=== PATIENT | female | born 1950 | race Two or more races ===

== ENCOUNTER 2017-08-01 10:32 | Emergency (ER) | payer MEDICARE, MEDICAID ==
[~2017-08-01] VITALS: Ht 152.4 cm; Wt 59.0 kg
[2017-08-01] MEDS ORDERED: KETOROLAC TROMETH 30 MG/ML 1ML VIAL IV ONE (11:00)
[2017-08-01 12:30] VITALS: BP 145/68
== END 2017-08-01 12:38 | disposition home or self-care (01) ==
LOC: ER 10:32
DX: S22.088A Other fracture of T11-T12 vertebra, initial encounter for closed fracture (principal); M19.90 Unspecified osteoarthritis, unspecified site; E11.9 Type 2 diabetes mellitus without complications; I10 Essential (primary) hypertension; I25.2 Old myocardial infarction; Z90.710 Acquired absence of both cervix and uterus; W18.39XA Other fall on same level, initial encounter; Y93.89 Activity, other specified; Y92.89 Other specified places as the place of occurrence of the external cause; Y99.8 Other external cause status
CPT/HCPCS: 72131; 93005; 96374; 99284; J1885

== ENCOUNTER 2020-01-18 10:46 | Inpatient (IN) | payer MEDICARE, MEDICAID ==
[~2020-01-18] VITALS: Ht 152.4 cm; Wt 59.3 kg
[2020-01-18] MEDS ORDERED: MORPHINE SULF INJ 2 MG/ML SYRINGE 1ML IV ONE (11:00)
[2020-01-18] MEDS ORDERED: ONDANSETRON HCL 4 MG/2 ML VIAL IV ONE (11:00)
[2020-01-18 11:21] LABS: Basophils # (auto) 0.1 10 ^3/uL (0-0.2); Eosinophils # (auto) 0.1 10 ^3/uL (0-0.8); Eosinophils % (auto) 1.7 % (0.0-7.0); Hematocrit 38.5 % (36.0-46.0); Hemoglobin 12.7 g/dL (12.2-16.2); Lymphocytes # (auto) 1.8 10 ^3/uL (0.4-5.4); Lymphocytes % (auto) 33.4 % (10.0-50.0); Mean Corpuscular Hemoglobin 30.8 pg (28.0-32.0); Mean Corpuscular Volume 93.3 fL (80.0-100.0); Monocytes # (auto) 0.6 10 ^3/uL (0-1.3); Monocytes % (auto) 10.7 % (0.0-12.0); Neutrophils # (auto) 2.9 10 ^3/uL (1.6-8.6); Neutrophils % (auto) 53.2 % (37.0-80.0); Nucleated Red Blood Cells % 0.1 %; Platelet Count (auto) 336 10^3/uL (140-450); Red Blood Cells 4.12 10^6/uL (4.0-5.20); Red Cell Distribution Width 14.6 % (11.8-14.3); White Blood Cell 5.4 10^3/uL (4.4-10.8)
[2020-01-18 11:40] LABS: Alanine Aminotransferase 35 U/L (13-56); Albumin 3.7 g/dL (3.4-5.0); Anion Gap 7 (5-15); Blood Urea Nitrogen 20 mg/dL (7-18); Calcium 9.2 mg/dL (8.5-10.1); Carbon Dioxide 25 mmol/L (21-32); Chloride 108 mmol/L (98-107); Glucose 173 mg/dL (74-106); Potassium 3.9 mmol/L (3.5-5.1); Sodium 140 mmol/L (136-145)
[2020-01-18 11:45] LABS: Alkaline Phosphatase 55 U/L (45-117); Aspartate Aminotransferase 31 U/L (15-37); BUN/Creatinine Ratio 21.7; Bilirubin, Total 0.4 mg/dL (0.2-1.0); GFR African American 78 mL/min; GFR Non-African American 64 mL/min; Total Protein 6.9 g/dL (6.4-8.2)
[2020-01-18] MEDS ORDERED: NITROGLYCERIN 0.4 MG SL TAB SL PRN (13:15)
[2020-01-18] MEDS ORDERED: MORPHINE SULF INJ 2 MG/ML SYRINGE 1ML IV PRN ×2 (13:15)
[2020-01-18] MEDS ORDERED: ONDANSETRON HCL 4 MG/2 ML VIAL IV PRN (13:15)
[2020-01-18] MEDS ORDERED: HYDROcodone-ACET 5/325MG TAB PO PRN (13:15)
[2020-01-18] MEDS ORDERED: DEXTROSE (50%) 50ML SYRG IV PRN (13:45)
[2020-01-18] MEDS: ACETAMINOPHEN 500 MG TAB PO PRN (14:55)
[2020-01-18] MEDS: SODIUM CHLORIDE 0.9% 1,000 ML IV SCH (15:25)
--- NOTE | 2020-01-18 16:00 | NUR ---
Telemetry admit from ER [facility] admitted to Telemetry unit after SBAR received. Patient oriented to primary RN, unit, room, bed, and unit policies regarding patient care. Patient now on continuous telemetry monitoring, tele box # 45 and telemetry reading on arrival to unit is SR 78. Patient weighed by bedscale and encouraged to call if she need something. All questions and concerns addressed, patient verbalized understanding.
[2020-01-18 17:00] VITALS: BP 153/49
[2020-01-18] MEDS: InsuLIN REG 1unit/0.01ml Soln (100units/ml) SC SCH (17:00)
[2020-01-18] MEDS ORDERED: PANT40TA2 PO (17:58)
[2020-01-18] MEDS ORDERED: ONDA-144 PO (17:58)
[2020-01-18] MEDS ORDERED: FOLI1TAB6 PO (17:58)
[2020-01-18] MEDS ORDERED: LEVO25TA6 PO (17:58)
[2020-01-18] MEDS ORDERED: MECL25TA18 PO (17:58)
[2020-01-18] MEDS ORDERED: FENO160T8 PO (17:58)
[2020-01-18] MEDS ORDERED: LOSA25TA38 PO (17:58)
[2020-01-18] MEDS ORDERED: CELE100C82 PO (17:58)
[2020-01-18] MEDS ORDERED: AMLO5TAB15 PO (17:58)
[2020-01-18] MEDS ORDERED: SUCR1TAB PO (17:58)
[2020-01-18] MEDS ORDERED: PRED2.5T4 PO (17:58)
--- NOTE | 2020-01-18 18:00 | NUR ---
Accu Chek Patient's blood sugar 60. [place] juice given and will recheck.
[2020-01-18 18:09] VITALS: BP 150/59
[2020-01-18] MEDS: ACCU-CHEK COMFORT CURVE STRIP VI SCH ×2 (18:14→22:03)
[2020-01-18] MEDS ORDERED: CELE1CAP8 PO (18:19)
[2020-01-18] MEDS ORDERED: [UNRECOGNIZED DRUG - CODE] TOP (18:24)
[2020-01-18] MEDS ORDERED: INSLANTI SC (18:24)
[2020-01-18] MEDS ORDERED: ATOR20TA50 PO (18:24)
[2020-01-18] MEDS ORDERED: BEXA75CA PO (18:24)
[2020-01-18] MEDS ORDERED: TRI05TP TOP (18:27)
--- NOTE | 2020-01-18 18:30 | NUR ---
Accu Chek Rechecked blood sugar is 70 at this time. Dinner tray arrived to unit late and given to patient.
--- NOTE | 2020-01-18 19:20 | NUR ---
Opening Shift Note Received report from Brandie ORONA. Assumed care of patient, awake and alert. No S/S of distress/SOB or pain. Instructed on POC and to call for assist PRN, will continue to monitor for changes Q1hr and PRN.
[2020-01-18 20:00] VITALS: BP 158/70
--- NOTE | 2020-01-18 20:46 | NUR ---
Urine sample was taken and sent to laboratory.
[2020-01-18 22:00] VITALS: BP 158/70
[2020-01-18] MEDS ORDERED: InsuLIN REG 1unit/0.01ml Soln (100units/ml) SC SCH (22:00)
[2020-01-18 22:20] LABS: Urine Bacteria NONE SEEN /hpf (None Seen); Urine Blood Negative /uL (Negative); Urine Specific Gravity 1.006 (1.001-1.035); Urine WBC 2 /hpf (0 - 5)
[2020-01-19] MEDS: SODIUM CHLORIDE 0.9% 1,000 ML IV SCH (03:50)
[2020-01-19 05:47] VITALS: BP 156/64
[2020-01-19 06:16] LABS: BUN/Creatinine Ratio 23.9; Calcium 9.1 mg/dL (8.5-10.1); Potassium 3.9 mmol/L (3.5-5.1)
[2020-01-19] MEDS: InsuLIN REG 1unit/0.01ml Soln (100units/ml) SC SCH ×4 (06:42→22:26)
[2020-01-19] MEDS: ACCU-CHEK COMFORT CURVE STRIP VI SCH ×4 (06:42→22:24)
[2020-01-19 09:00] VITALS: BP 155/79
[2020-01-19] MEDS: FAMOTIDINE 20 MG TAB PO SCH (09:53)
--- NOTE | 2020-01-19 11:57 | NUR ---
high blood pressure Dr. Rojas made aware pt's blood pressure is 181/52mmHg, he said he will see the pt.
--- NOTE | 2020-01-19 12:01 | NUR ---
insulin not given blood sugar is 157, pt's blood sugar drops fast with inulin, will notify .
--- NOTE | 2020-01-19 12:29 | NUR ---
pt seen by Dr. Rojas, received order to DC IVF, and continue all home medication except for lantus, made aware pt's blood sugar drop, he said to put pt on mild sliding scale, made aware insulin was held for blood sugar 157.
[2020-01-19] MEDS ORDERED: MECLIZINE HCL 25 MG TAB PO PRN (12:45)
[2020-01-19 13:00] VITALS: BP 181/58
[2020-01-19] MEDS ORDERED: LOSARTAN POTASSIUM 25 MG TAB PO ONE (13:15)
[2020-01-19] MEDS ORDERED: amLODIPine BESYLATE 5 MG TAB PO ONE (13:15)
[2020-01-19] MEDS ORDERED: DEXTROSE (50%) 50ML SYRG IV PRN (13:30)
[2020-01-19 17:00] VITALS: BP 150/78
[2020-01-19] MEDS: SUCRALFATE 1 GM TAB PO SCH ×2 (18:23→22:23)
--- NOTE | 2020-01-19 19:35 | NUR ---
Opening Shift Note Assumed care of patient, awake and alert A/O x 4. No S/S of distress/SOB pain or dizziness. Bed in lowered and locked call light and bedside table in reach. Instructed on POC and to call for assist PRN, will continue to monitor for changes Q1hr and PRN.
[2020-01-19 21:56] VITALS: BP 156/71
[2020-01-19] MEDS: ATORVASTATIN 20 MG TAB PO SCH (22:24)
[2020-01-19] MEDS: TRIAMCINOLONE ACET 0.1% TOPICAL CREAM 15GM TOP SCH (22:30)
--- NOTE | 2020-01-19 22:43 | NUR ---
Patient refused regular insulin for blood glucose level of 139 mg/dl. patient states that that is a normal blood glucose reading for her and does not want insulin. Patient educated on purpose of medication and side effects but still refused medication.
--- NOTE | 2020-01-19 22:55 | NUR ---
Doctor Sanchez at bedside
[2020-01-20 00:16] LABS: Triglycerides 272 mg/dL (< 150)
[2020-01-20 00:20] LABS: Cholesterol 207 mg/dL (< 200); HDL Cholesterol 20 mg/dL (40-59); LDL Cholesterol 140 mg/dL (< 100)
[2020-01-20] MEDS: ACETAMINOPHEN 500 MG TAB PO PRN (02:29)
[2020-01-20 05:02] VITALS: BP 155/83
[2020-01-20] MEDS: SUCRALFATE 1 GM TAB PO SCH ×4 (06:20→21:53)
[2020-01-20] MEDS: ACCU-CHEK COMFORT CURVE STRIP VI SCH ×4 (06:21→21:55)
[2020-01-20] MEDS: LEVOTHYROXINE SODIUM 25 MCG TAB PO SCH ×3 (06:21→06:37)
[2020-01-20] MEDS: InsuLIN REG 1unit/0.01ml Soln (100units/ml) SC SCH ×4 (06:22→21:54)
--- NOTE | 2020-01-20 08:30 | NUR ---
Dr. Sanchez at bedside, patient is clear from neurology standpoint.
[2020-01-20 09:00] VITALS: BP 153/68
[2020-01-20] MEDS: CELECOXIB 100 MG CAP PO SCH (09:24)
[2020-01-20] MEDS: FAMOTIDINE 20 MG TAB PO SCH (09:24)
[2020-01-20] MEDS: FOLIC ACID 1 MG TAB PO SCH (09:24)
[2020-01-20] MEDS: amLODIPine BESYLATE 5 MG TAB PO SCH (09:25)
[2020-01-20] MEDS: LOSARTAN POTASSIUM 25 MG TAB PO SCH (09:25)
[2020-01-20] MEDS: predniSONE 5 MG TAB PO SCH (09:25)
[2020-01-20] MEDS: ASPirin-EC 81 mg tab PO SCH (09:26)
[2020-01-20] MEDS: TRIAMCINOLONE ACET 0.1% TOPICAL CREAM 15GM TOP SCH ×2 (09:26→21:55)
[2020-01-20 12:56] VITALS: BP 155/65
[2020-01-20 16:40] VITALS: BP 136/55
--- NOTE | 2020-01-20 19:20 | NUR ---
Opening Shift Note Assumed care of patient, awake and alert A/O x 4. No S/S of distress/SOB pain or dizziness. Bed locked in lowest position and call light within reach. Instructed on POC and to call for assist PRN, will continue to monitor for changes Q1hr and PRN.
--- NOTE | 2020-01-20 21:30 | NUR ---
Patient Refused Meds Patient refused her Lipitor and Carafate as ordered. Patient said she does not want to take Carafate and that Lipitor makes her nauseous. Medications withheld at this time.
[2020-01-20] MEDS: ATORVASTATIN 20 MG TAB PO SCH (21:54)
[2020-01-20 22:08] VITALS: BP 153/59
[2020-01-21 05:00] VITALS: BP 142/67
[2020-01-21] MEDS: SUCRALFATE 1 GM TAB PO SCH ×2 (06:00→11:50)
[2020-01-21] MEDS: ACCU-CHEK COMFORT CURVE STRIP VI SCH ×2 (06:32→11:50)
[2020-01-21] MEDS: LEVOTHYROXINE SODIUM 25 MCG TAB PO SCH (06:32)
[2020-01-21] MEDS: InsuLIN REG 1unit/0.01ml Soln (100units/ml) SC SCH ×2 (06:35→11:51)
[2020-01-21 09:00] VITALS: BP 139/69
[2020-01-21] MEDS: predniSONE 5 MG TAB PO SCH (09:22)
[2020-01-21] MEDS: LOSARTAN POTASSIUM 25 MG TAB PO SCH (09:23)
[2020-01-21] MEDS: ASPirin-EC 81 mg tab PO SCH (09:23)
[2020-01-21] MEDS: CELECOXIB 100 MG CAP PO SCH (09:23)
[2020-01-21] MEDS: FAMOTIDINE 20 MG TAB PO SCH (09:23)
[2020-01-21] MEDS: TRIAMCINOLONE ACET 0.1% TOPICAL CREAM 15GM TOP SCH (09:24)
[2020-01-21] MEDS: FOLIC ACID 1 MG TAB PO SCH (09:24)
[2020-01-21] MEDS: amLODIPine BESYLATE 5 MG TAB PO SCH (09:24)
--- NOTE | 2020-01-21 12:28 | NUR ---
assessment Patient is a 69 year old female. Per patients franco Benitez prior to admission patient lived home with family and needed assistance. Per Emmanuel patient will return home on discharge and he will transport patient home. Patient has a cane for home use. Patients PCP is Dr Figueroa in [place]. Patient has an advanced directive and Emmanuel is her POA. I informed Emmanuel of patients ss consult. Per Emmanuel he request [facility]. MD order has been sent to [facility]. Per Hiro at [facility] service will start on tomorrow 01/22/2020. Emmanuel verbalized understanding and agreed to discharge plan home. Addendum: 01/21/20 at 1233 by Mamta Pedro Amended: Links added.
[2020-01-21 13:24] VITALS: BP 139/69
--- NOTE | 2020-01-21 15:36 | NUR ---
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
--- NOTE | 2020-01-21 16:10 | NUR ---
Discharge instructions given as ordered. Encourage to follow up with PMD (FOLLOW UP WITH YOUR PRIMARY CARE DOCTOR WITH IN 1 WEEK [address] SCH[address]ULE WITH [address]. GARCIA, SAMEL [address][phone] , [address] [place] [address] FOLLOW UP WITH THE NEUROLOGIST DR. HAMPTON WITHIN 2 WEEKS. PLEASE CALL [phone] TO SCHEDULE YOUR FOLLOW UP APPOINTMENT. FOLLOW UP WITH THE DIRECTOR OF ROOMS DR. ACOSTA, PLEASE CALL [phone] TO SCHEDULE YOUR APPOINTMENT. ) as instructed. All questions and concerns addressed. Patient verbalized understanding. Medication reconciliation form completed and copy given to patient. Home medications held in Pharmacy returned to patient. IV removed with catheter intact, pressure dressing applied. Telemetry unit returned to ICU. Patient taken to vehicle via wheelchair with all personal belongings, accompanied by staff and family member. No distress noted at time of departure.
== END 2020-01-21 16:10 | disposition home health service (06) | DRG 69 ==
LOC: ER 10:46 → TELE 10:47 → TELE-CENTR 16:46
PROVIDERS: ADMIT Nurse Practitioner Acute Care; ATTEND Family Medicine
DX: G45.9 Transient cerebral ischemic attack, unspecified (principal); E86.0 Dehydration; M06.9 Rheumatoid arthritis, unspecified; I10 Essential (primary) hypertension; M81.0 Age-related osteoporosis without current pathological fracture; Z20.828 Contact with and (suspected) exposure to other viral communicable diseases; E78.5 Hyperlipidemia, unspecified; F17.200 Nicotine dependence, unspecified, uncomplicated; I25.10 Atherosclerotic heart disease of native coronary artery without angina pectoris; E11.65 Type 2 diabetes mellitus with hyperglycemia; E11.21 Type 2 diabetes mellitus with diabetic nephropathy; C73 Malignant neoplasm of thyroid gland; Z90.710 Acquired absence of both cervix and uterus; Z85.850 Personal history of malignant neoplasm of thyroid; Z92.21 Personal history of antineoplastic chemotherapy; Z79.82 Long term (current) use of aspirin; Z79.899 Other long term (current) drug therapy; Z80.1 Family history of malignant neoplasm of trachea, bronchus and lung; Z80.0 Family history of malignant neoplasm of digestive organs; I25.2 Old myocardial infarction; Z79.84 Long term (current) use of oral hypoglycemic drugs
CPT/HCPCS: 36415; 70450; 70551; 71045; 80048; 80053; 80061; 81001; 82962; 83036; 84443; 84484; 85025; 87426; 93005; 93306; 93886; G0378; J1815; J2405

== ENCOUNTER 2020-03-03 15:59 | Inpatient (IN) | payer MEDICARE, MEDICAID ==
[~2020-03-03] VITALS: Ht 152.4 cm; Wt 57.0 kg
[2020-03-03] MEDS: DESONIDE 0.05% TOP SCH (05:03)
[~2020-03-03 15:59] MED LIST: AMLO5TAB15 PO; ATOR20TA50 PO; BEXA75CA PO; CELE1CAP8 PO; FENO160T8 PO; FOLI1TAB6 PO; INSLANTI SC; LEVO25TA6 PO; LOSA25TA38 PO; MECL25TA18 PO; ONDA-144 PO; PANT40TA2 PO; PRED2.5T4 PO; SUCR1TAB PO; TRI05TP TOP; [UNRECOGNIZED DRUG - CODE] TOP
[2020-03-03 17:03] LABS: Urine WBC None Seen /hpf (0 - 5)
[2020-03-03 17:05] LABS: Basophils # (auto) 0.1 10 ^3/uL (0-0.2); Basophils % (auto) 0.9 % (0.0-2.0); Eosinophils # (auto) 0 10 ^3/uL (0-0.8); Eosinophils % (auto) 0.8 % (0.0-7.0); Hemoglobin 11.8 g/dL (12.2-16.2); Lymphocytes # (auto) 2.3 10 ^3/uL (0.4-5.4); Lymphocytes % (auto) 37.2 % (10.0-50.0); Mean Corpuscular Hemoglobin 30.9 pg (28.0-32.0); Mean Corpuscular Hgb Conc. 32.7 g/dL (32.0-36.0); Mean Corpuscular Volume 94.5 fL (80.0-100.0); Monocytes # (auto) 0.5 10 ^3/uL (0-1.3); Monocytes % (auto) 8.1 % (0.0-12.0); Neutrophils # (auto) 3.2 10 ^3/uL (1.6-8.6); Nucleated Red Blood Cells % 0.2 %; Platelet Count (auto) 338 10^3/uL (140-450); Red Blood Cells 3.81 10^6/uL (4.0-5.20); Red Cell Distribution Width 14.2 % (11.8-14.3); White Blood Cell 6.1 10^3/uL (4.4-10.8)
[2020-03-03 17:15] LABS: INR 0.97 (0.9-1.15); Partial Thromboplastin Time 24.2 sec (23.0-31.2)
[2020-03-03 17:24] LABS: Albumin 3.6 g/dL (3.4-5.0); Amylase 49 U/L (25-115); Anion Gap 5 (5-15); BUN/Creatinine Ratio 22.1; Blood Urea Nitrogen 23 mg/dL (7-18); Calcium 8.8 mg/dL (8.5-10.1); Carbon Dioxide 29 mmol/L (21-32); Chloride 101 mmol/L (98-107); GFR African American 67 mL/min; GFR Non-African American 56 mL/min; Glucose 224 mg/dL (74-106); Lipase 144 U/L (73-393); Magnesium 1.9 mg/dL (1.6-2.6); Sodium 135 mmol/L (136-145)
[2020-03-03 17:28] LABS: Urine Bacteria NONE SEEN /hpf (None Seen); Urine Blood Negative /uL (Negative); Urine Specific Gravity 1.015 (1.001-1.035)
[2020-03-03 17:30] LABS: Alanine Aminotransferase 29 U/L (13-56); Alkaline Phosphatase 84 U/L (45-117); Aspartate Aminotransferase 28 U/L (15-37); Bilirubin, Total 0.3 mg/dL (0.2-1.0); Total Protein 6.9 g/dL (6.4-8.2)
[2020-03-03] MEDS ORDERED: cefTRIAXone 1GM/50ML D5W 50 ML IV ONE (18:30)
[2020-03-03] MEDS ORDERED: AZITHROMYCIN 500MG/ 250ML 250 ML IV ONE (18:30)
[2020-03-03] MEDS ORDERED: INFLUENZA QUAD 2020-2021 0.5 ML SYRG IM ONE (19:00)
[2020-03-03] MEDS ORDERED: NITROGLYCERIN 0.4 MG SL TAB SL PRN (19:00)
[2020-03-03] MEDS ORDERED: PNEUMOCOCCAL VACC POLYS 25 MCG/0.5 ML VIAL IM ONE (19:00)
[2020-03-03] MEDS ORDERED: SODIUM CHLORIDE 0.9% 1,000 ML IV SCH (19:00)
[2020-03-03] MEDS ORDERED: ACETAMINOPHEN 325 MG TAB PO PRN (19:00)
[2020-03-03] MEDS ORDERED: DOCUSATE SOD 100 MG CAP PO PRN (19:00)
[2020-03-03] MEDS ORDERED: ALUM & MAG HYDROX-SIMETH LIQ(MAALOX) 30 ML PO PRN (19:00)
[2020-03-03] MEDS ORDERED: MEROPENEM 1GM IVPB 100 ML IV ONE (19:00)
[2020-03-03] MEDS ORDERED: HYDROcodone-ACET 5/325MG TAB PO PRN (19:00)
[2020-03-03] MEDS ORDERED: LORazepam 0.5 MG TAB PO PRN (19:00)
[2020-03-03] MEDS ORDERED: MORPHINE SULF INJ 2 MG/ML SYRINGE 1ML IV PRN ×2 (19:00)
[2020-03-03] MEDS ORDERED: DEXTROSE (50%) 50ML SYRG IV PRN (19:00)
[2020-03-03] MEDS ORDERED: ONDANSETRON HCL 4 MG/2 ML VIAL IV PRN (19:00)
[2020-03-03] MEDS ORDERED: LOSA-69 PO (19:00)
[2020-03-03] MEDS ORDERED: [UNRECOGNIZED DRUG - CODE] SC (19:24)
[2020-03-03] MEDS ORDERED: [UNRECOGNIZED DRUG - CODE] EX (19:25)
[2020-03-03] MEDS ORDERED: KETO2CRE4 TOP (19:25)
[2020-03-03] MEDS ORDERED: hydrALAZINE HCL 20 MG/ML VL IV PRN (19:30)
[2020-03-03 21:11] LABS: Cholesterol 208 mg/dL (< 200); HDL Cholesterol 24 mg/dL (40-59); LDL Cholesterol 144 mg/dL (< 100); Triglycerides 292 mg/dL (< 150)
[2020-03-03] MEDS ORDERED: InsuLIN REG 1unit/0.01ml Soln (100units/ml) SC SCH (22:00)
[2020-03-03] MEDS ORDERED: ATORVASTATIN 20 MG TAB PO SCH (22:00)
[2020-03-03] MEDS ORDERED: [UNRECOGNIZED DRUG - OTHER] TOP SCH (22:00)
[2020-03-04 04:31] VITALS: BP 147/69
[2020-03-04 05:09] VITALS: BP 142/69
--- NOTE | 2020-03-04 05:17 | NUR ---
Telemetry admit from [facility] admitted to Telemetry unit after SBAR received. Patient oriented to Torrey Parker, primary RN, unit, room, bed, and unit policies regarding patient care and visiting hours. Patient now on continuous telemetry monitoring, tele box # [53] and telemetry reading on arrival to unit is [SA 80]. Patient weighed by bedscale and encouraged to call if they need something. All questions and concerns addressed, patient verbalized understanding. Note: []
--- NOTE | 2020-03-04 05:20 | NUR ---
Unable to reconcile home medications at this time Unable to reconcile home medications at this time. Patient reports she takes medications at home but does not remember the name of her medications and she did not bring a list. Per patient, she will call son later today and have him bring in a list of her home medications. Primary RN Caryn alexandra.
[2020-03-04] MEDS: SUCRALFATE 1 GM TAB PO SCH ×2 (06:40→11:30)
[2020-03-04] MEDS: ACCU-CHEK COMFORT CURVE STRIP VI SCH ×2 (06:40→11:30)
[2020-03-04] MEDS: InsuLIN REG 1unit/0.01ml Soln (100units/ml) SC SCH ×2 (06:41→11:30)
--- NOTE | 2020-03-04 06:45 | NUR ---
CALLED PHARMACY, RESCHEDULED MERREM SINCE MEDICATION NOT GIVEN IN ER. CONTINUE TO MONITOR.
[2020-03-04] MEDS ORDERED: BEXAROTENE PO SCH (07:00)
[2020-03-04] MEDS ORDERED: MEROPENEM 1GM IVPB 100 ML IV SCH ×2 (07:00→10:00)
[2020-03-04] MEDS ORDERED: LEVOTHYROXINE SODIUM 25 MCG TAB PO SCH (07:00)
--- NOTE | 2020-03-04 07:26 | NUR ---
[facility]SA SWAB COLLECTED AND SENT. CONTINUE TO MONITOR
--- NOTE | 2020-03-04 07:35 | NUR ---
Opening Shift Note Assumed care of patient, awake and alert . Bed is locked and in lowest position , bed rails up x2 , call light is with in reach. No S/S of distress/SOB or pain. Instructed on POC and to call for assistance PRN, will continue to monitor for changes Q1hr and PRN.
[2020-03-04 09:00] VITALS: BP 119/57
[2020-03-04] MEDS ORDERED: amLODIPine BESYLATE 5 MG TAB PO SCH (10:00)
[2020-03-04] MEDS ORDERED: PANTOPRAZOLE 40 MG TAB PO SCH (10:00)
[2020-03-04] MEDS ORDERED: predniSONE 5 MG TAB PO SCH (10:00)
[2020-03-04] MEDS ORDERED: GEMFIBROZIL 600 MG TAB PO SCH (10:00)
[2020-03-04] MEDS: DESONIDE 0.05% TOP SCH (10:00)
[2020-03-04] MEDS ORDERED: ENOXAPARIN SOD 40 MG/0.4 ML SYRINGE SC SCH (10:00)
[2020-03-04] MEDS ORDERED: FOLIC ACID 1 MG TAB PO SCH (10:00)
[2020-03-04 13:00] VITALS: BP 141/69
--- NOTE | 2020-03-04 15:15 | NUR ---
Discharge instructions given as ordered. Encourage to follow up with PMD as instructed. All questions and concerns addressed. Patient verbalized understanding. Medication reconciliation form completed and copy given to patient. vaccines given. IV removed with catheter intact, pressure dressing applied. Telemetry unit returned to ICU. Patient taken to vehicle via wheelchair with all personal belongings, accompanied by staff . No distress noted at time of departure.
== END 2020-03-04 15:15 | disposition home or self-care (01) | DRG 690 ==
LOC: ER 15:59 → TELE 16:00 → TELE-WESTW 03-04 04:28
PROVIDERS: ADMIT Hospitalist; ATTEND Family Medicine
PROC: 3E0234Z Introduction of Serum, Toxoid and Vaccine into Muscle, Percutaneous Approach (ICD-10-PCS; principal; 2020-03-03)
DX: N39.0 Urinary tract infection, site not specified (principal); E86.0 Dehydration; E78.5 Hyperlipidemia, unspecified; E11.65 Type 2 diabetes mellitus with hyperglycemia; D64.9 Anemia, unspecified; G89.29 Other chronic pain; E11.22 Type 2 diabetes mellitus with diabetic chronic kidney disease; E11.40 Type 2 diabetes mellitus with diabetic neuropathy, unspecified; M54.9 Dorsalgia, unspecified; I12.9 Hypertensive chronic kidney disease with stage 1 through stage 4 chronic kidney disease, or unspecified chronic kidney disease; K21.9 Gastro-esophageal reflux disease without esophagitis; K29.70 Gastritis, unspecified, without bleeding; Z23 Encounter for immunization; M06.9 Rheumatoid arthritis, unspecified; M81.0 Age-related osteoporosis without current pathological fracture; N18.9 Chronic kidney disease, unspecified; Z79.84 Long term (current) use of oral hypoglycemic drugs; Z80.9 Family history of malignant neoplasm, unspecified; Z85.850 Personal history of malignant neoplasm of thyroid; Z87.440 Personal history of urinary (tract) infections; Z90.710 Acquired absence of both cervix and uterus
CPT/HCPCS: 36415; 71046; 74176; 80053; 80061; 81001; 82150; 82962; 83036; 83605; 83690; 83735; 84484; 85025; 85610; 85730; 87040; 87081; 87086; 96365; 96367; 96372; G0378; J0696; J2185

== ENCOUNTER 2020-12-21 10:51 | Emergency (ER) | payer MEDICARE, MEDICAID ==
[~2020-12-21] VITALS: Ht 152.4 cm; Wt 59.0 kg
[~2020-12-21 10:51] MED LIST changes: +AMLO-489 PO; -AMLO5TAB15 PO; +KETO2CRE4 TOP; +LOSA-69 PO; -LOSA25TA38 PO; -MECL25TA18 PO; -ONDA-144 PO; -TRI05TP TOP; +[UNRECOGNIZED DRUG - CODE] EX; +[UNRECOGNIZED DRUG - CODE] SC
[2020-12-21] MEDS ORDERED: cloNIDine HCL 0.1 MG TAB PO ONE (11:00)
[2020-12-21] MEDS ORDERED: ACETAMINOPHEN 325 MG TAB PO ONE (11:30)
[2020-12-21 12:57] VITALS: BP 133/53
== END 2020-12-21 13:52 | disposition home or self-care (01) ==
LOC: ER 10:51
DX: S46.911A Strain of unspecified muscle, fascia and tendon at shoulder and upper arm level, right arm, initial encounter (principal); M19.011 Primary osteoarthritis, right shoulder; E11.9 Type 2 diabetes mellitus without complications; I10 Essential (primary) hypertension; E78.5 Hyperlipidemia, unspecified; I25.2 Old myocardial infarction; M19.90 Unspecified osteoarthritis, unspecified site; Z90.710 Acquired absence of both cervix and uterus; Z90.89 Acquired absence of other organs; Z79.4 Long term (current) use of insulin; Z79.899 Other long term (current) drug therapy
CPT/HCPCS: 73030

== ENCOUNTER 2021-01-23 02:57 | Inpatient (IN) | payer MEDICARE, MEDICAID ==
[~2021-01-23] VITALS: Ht 152.4 cm; Wt 57.1 kg
[2021-01-23] MEDS ORDERED: ONDANSETRON HCL 4 MG/2 ML VIAL IV ONE (03:45)
[2021-01-23 04:33] LABS: Basophils # (auto) 0 10 ^3/uL (0-0.2); Basophils % (auto) 0.1 % (0.0-2.0); Eosinophils # (auto) 0.1 10 ^3/uL (0-0.8); Eosinophils % (auto) 0.6 % (0.0-7.0); Hematocrit 43.5 % (36.0-46.0); Hemoglobin 14.3 g/dL (12.2-16.2); Lymphocytes # (auto) 0.5 10 ^3/uL (0.4-5.4); Lymphocytes % (auto) 5.1 % (10.0-50.0); Mean Corpuscular Hemoglobin 29.8 pg (28.0-32.0); Mean Corpuscular Hgb Conc. 32.9 g/dL (32.0-36.0); Mean Corpuscular Volume 90.5 fL (80.0-100.0); Monocytes # (auto) 0.4 10 ^3/uL (0-1.3); Monocytes % (auto) 3.8 % (0.0-12.0); Neutrophils # (auto) 8.8 10 ^3/uL (1.6-8.6); Neutrophils % (auto) 90.4 % (37.0-80.0); Red Cell Distribution Width 14.7 % (11.8-14.3); White Blood Cell 9.7 10^3/uL (4.4-10.8)
[2021-01-23 04:45] LABS: INR 0.99 (0.9-1.15)
[2021-01-23 04:52] LABS: Albumin 3.7 g/dL (3.4-5.0); Anion Gap 6 (5-15); Blood Urea Nitrogen 28 mg/dL (7-18); Calcium 9.2 mg/dL (8.5-10.1); Carbon Dioxide 25 mmol/L (21-32); Chloride 109 mmol/L (98-107); Lipase 1008 U/L (73-393); Potassium 4.2 mmol/L (3.5-5.1); Sodium 140 mmol/L (136-145)
[2021-01-23 05:00] LABS: Alanine Aminotransferase 24 U/L (13-56); Alkaline Phosphatase 63 U/L (45-117); Aspartate Aminotransferase 19 U/L (15-37); Bilirubin, Total 0.4 mg/dL (0.2-1.0); GFR African American 106 mL/min; GFR Non-African American 88 mL/min; Glucose 167 mg/dL (74-106)
[2021-01-23] MEDS ORDERED: SODIUM CHLORIDE 0.9% 1,000 ML IV ONE (06:00)
[2021-01-23] MEDS ORDERED: MORPHINE SULFATE 4 MG/ML SYR/VIAL IV PRN (07:15)
[2021-01-23] MEDS ORDERED: ONDANSETRON HCL 4 MG/2 ML VIAL IV PRN (07:15)
[2021-01-23] MEDS ORDERED: hydrALAZINE HCL 20 MG/ML VL IV PRN (07:15)
[2021-01-23 08:28] VITALS: BP 129/65
[2021-01-23 09:00] VITALS: BP 129/65
[2021-01-23] MEDS: PANTOPRAZOLE 40 MG/10 ML VIAL INJ IV SCH (10:23)
[2021-01-23] MEDS: SODIUM CHLORIDE 0.9% 1,000 ML IV SCH ×2 (10:23→21:13)
[2021-01-23] MEDS: metroNIDAZOLE 500MG/100ML 100 ML IV SCH ×2 (10:23→17:13)
[2021-01-23 13:00] VITALS: BP 139/60
[2021-01-23] MEDS: ATORVASTATIN 20 MG TAB PO SCH (21:39)
[2021-01-23 22:00] VITALS: BP 157/58
[2021-01-24] MEDS: metroNIDAZOLE 500MG/100ML 100 ML IV SCH ×3 (00:22→16:07)
[2021-01-24 04:51] VITALS: BP 158/50
[2021-01-24] MEDS: LEVOTHYROXINE SODIUM 25 MCG TAB PO SCH ×2 (07:00→08:03)
[2021-01-24 07:16] LABS: Basophils # (auto) 0 10 ^3/uL (0-0.2); Basophils % (auto) 0.3 % (0.0-2.0); Eosinophils # (auto) 0.1 10 ^3/uL (0-0.8); Eosinophils % (auto) 2.7 % (0.0-7.0); Hematocrit 38.1 % (36.0-46.0); Hemoglobin 12.7 g/dL (12.2-16.2); Lymphocytes # (auto) 1.3 10 ^3/uL (0.4-5.4); Lymphocytes % (auto) 29.6 % (10.0-50.0); Mean Corpuscular Hemoglobin 30.4 pg (28.0-32.0); Mean Corpuscular Hgb Conc. 33.3 g/dL (32.0-36.0); Mean Corpuscular Volume 91.1 fL (80.0-100.0); Monocytes # (auto) 0.4 10 ^3/uL (0-1.3); Monocytes % (auto) 10.4 % (0.0-12.0); Neutrophils # (auto) 2.4 10 ^3/uL (1.6-8.6); Nucleated Red Blood Cells % 0.1 %; Red Blood Cells 4.19 10^6/uL (4.0-5.20); Red Cell Distribution Width 14.7 % (11.8-14.3); White Blood Cell 4.2 10^3/uL (4.4-10.8)
[2021-01-24 09:00] VITALS: BP 169/84
[2021-01-24] MEDS: SODIUM CHLORIDE 0.9% 1,000 ML IV SCH (09:55)
[2021-01-24] MEDS: levoFLOXacin 500MG 100 ML IV SCH (10:00)
[2021-01-24] MEDS: PANTOPRAZOLE 40 MG/10 ML VIAL INJ IV SCH ×2 (10:00→11:08)
[2021-01-24 10:02] LABS: Urine Bacteria FEW /hpf (None Seen); Urine Blood Negative /uL (Negative); Urine Hyaline Cast FEW /lpf (0 - 2); Urine Specific Gravity 1.014 (1.001-1.035); Urine WBC 137 /hpf (0 - 5)
[2021-01-24] MEDS: LOSARTAN POTASSIUM 50 MG TAB PO SCH (11:08)
[2021-01-24] MEDS: amLODIPine BESYLATE 5 MG TAB PO SCH (11:09)
[2021-01-24 12:15] LABS: Potassium 3.2 mmol/L (3.5-5.1)
[2021-01-24 12:17] LABS: Albumin 2.7 g/dL (3.4-5.0); BUN/Creatinine Ratio 24.6; Bilirubin, Total 0.3 mg/dL (0.2-1.0); Calcium 7.9 mg/dL (8.5-10.1); Total Protein 5.7 g/dL (6.4-8.2)
[2021-01-24 13:00] VITALS: BP 157/68
[2021-01-24 17:00] VITALS: BP 157/91
[2021-01-24 21:36] VITALS: BP 146/60
[2021-01-24] MEDS: ATORVASTATIN 20 MG TAB PO SCH (21:37)
[2021-01-25] MEDS: metroNIDAZOLE 500MG/100ML 100 ML IV SCH ×2 (01:14→08:46)
[2021-01-25] MEDS: SODIUM CHLORIDE 0.9% 1,000 ML IV SCH (01:14)
[2021-01-25 04:52] VITALS: BP 151/74
[2021-01-25] MEDS: LEVOTHYROXINE SODIUM 25 MCG TAB PO SCH (06:47)
[2021-01-25 09:00] VITALS: BP 161/69
[2021-01-25] MEDS: amLODIPine BESYLATE 5 MG TAB PO SCH (09:15)
[2021-01-25] MEDS: LOSARTAN POTASSIUM 50 MG TAB PO SCH (09:15)
[2021-01-25] MEDS: levoFLOXacin 500MG 100 ML IV SCH ×2 (11:08→11:17)
[2021-01-25 13:00] VITALS: BP 162/73
== END 2021-01-25 15:05 | disposition home or self-care (01) | DRG 439 ==
LOC: ER 02:57 → EDBD 02:57 → OVERFLOW 07:04 → WEST WING 08:20
PROVIDERS: ADMIT Nurse Practitioner; ATTEND Family Medicine
DX: K85.90 Acute pancreatitis without necrosis or infection, unspecified (principal); K56.7 Ileus, unspecified; K52.9 Noninfective gastroenteritis and colitis, unspecified; E11.9 Type 2 diabetes mellitus without complications; E78.00 Pure hypercholesterolemia, unspecified; E78.5 Hyperlipidemia, unspecified; I10 Essential (primary) hypertension; I25.10 Atherosclerotic heart disease of native coronary artery without angina pectoris; Z20.822 Contact with and (suspected) exposure to COVID-19; F32.A Depression, unspecified; E03.9 Hypothyroidism, unspecified; K83.8 Other specified diseases of biliary tract; Z80.0 Family history of malignant neoplasm of digestive organs; Z80.1 Family history of malignant neoplasm of trachea, bronchus and lung; I25.2 Old myocardial infarction; Z85.828 Personal history of other malignant neoplasm of skin; Z90.49 Acquired absence of other specified parts of digestive tract; Z90.710 Acquired absence of both cervix and uterus; Z85.05 Personal history of malignant neoplasm of liver; Z92.21 Personal history of antineoplastic chemotherapy; Z79.4 Long term (current) use of insulin
CPT/HCPCS: 36415; 74176; 74181; 76705; 80053; 80061; 81001; 82962; 83605; 83690; 83735; 83880; 84484; 85025; 85610; 86301; 87045; 87086; 87088; 87186; 87426; 87427; 87493; 93005; 96361; 96374; C9113; G0378; J1956; J2405; J3490

== ENCOUNTER 2021-01-26 10:43 | Emergency (ER) | payer MEDICARE, MEDICAID ==
[~2021-01-26] VITALS: Ht 152.4 cm; Wt 57.6 kg
[2021-01-26] MEDS ORDERED: SODIUM CHLORIDE 0.9% 1,000 ML IVB ONE (10:45)
[2021-01-26] MEDS ORDERED: MORPHINE SULFATE 4 MG/ML SYR/VIAL IV ONE (10:45)
[2021-01-26] MEDS ORDERED: ONDANSETRON HCL 4 MG/2 ML VIAL IV ONE (10:45)
[2021-01-26] MEDS ORDERED: PANTOPRAZOLE 40 MG/10 ML VIAL INJ IV ONE (10:45)
[2021-01-26 11:25] LABS: Basophils # (auto) 0 10 ^3/uL (0-0.2); Basophils % (auto) 0.3 % (0.0-2.0); Eosinophils # (auto) 0 10 ^3/uL (0-0.8); Eosinophils % (auto) 0.6 % (0.0-7.0); Hematocrit 40.1 % (36.0-46.0); Hemoglobin 13.2 g/dL (12.2-16.2); Lymphocytes # (auto) 1.7 10 ^3/uL (0.4-5.4); Lymphocytes % (auto) 29.1 % (10.0-50.0); Mean Corpuscular Hemoglobin 30.2 pg (28.0-32.0); Mean Corpuscular Hgb Conc. 32.9 g/dL (32.0-36.0); Mean Corpuscular Volume 91.8 fL (80.0-100.0); Monocytes # (auto) 0.8 10 ^3/uL (0-1.3); Monocytes % (auto) 13.3 % (0.0-12.0); Neutrophils # (auto) 3.4 10 ^3/uL (1.6-8.6); Neutrophils % (auto) 56.7 % (37.0-80.0); Nucleated Red Blood Cells % 0.1 %; Red Blood Cells 4.37 10^6/uL (4.0-5.20); Red Cell Distribution Width 14.8 % (11.8-14.3); White Blood Cell 5.9 10^3/uL (4.4-10.8)
[2021-01-26 11:38] LABS: INR 1.05 (0.9-1.15); Partial Thromboplastin Time 26.5 sec (23.6-33.0)
[2021-01-26 11:44] LABS: Calcium 8.6 mg/dL (8.5-10.1); Potassium 3.8 mmol/L (3.5-5.1)
[2021-01-26 11:50] LABS: BUN/Creatinine Ratio 14.9; Bilirubin, Total 0.3 mg/dL (0.2-1.0); Total Protein 6.3 g/dL (6.4-8.2)
[2021-01-26 16:34] VITALS: BP 176/66
== END 2021-01-26 16:45 | disposition home or self-care (01) ==
LOC: EDBD 10:43 → ER 10:43
DX: R10.13 Epigastric pain (principal); E11.9 Type 2 diabetes mellitus without complications; E78.5 Hyperlipidemia, unspecified; I10 Essential (primary) hypertension; I25.2 Old myocardial infarction; Z79.899 Other long term (current) drug therapy; Z85.828 Personal history of other malignant neoplasm of skin; Z79.4 Long term (current) use of insulin; Z90.49 Acquired absence of other specified parts of digestive tract; Z90.710 Acquired absence of both cervix and uterus; Z20.822 Contact with and (suspected) exposure to COVID-19
CPT/HCPCS: 36415; 80053; 83690; 85025; 85610; 85730; 87426; 93005; 99284; J7030

== ENCOUNTER 2021-01-29 08:04 | Emergency (ER) | payer MEDICARE, MEDICAID ==
[~2021-01-29] VITALS: Ht 152.4 cm; Wt 58.1 kg
[2021-01-29 09:52] LABS: Basophils # (auto) 0.1 10 ^3/uL (0-0.2); Basophils % (auto) 0.9 % (0.0-2.0); Eosinophils # (auto) 0.1 10 ^3/uL (0-0.8); Eosinophils % (auto) 1.2 % (0.0-7.0); Hematocrit 38.1 % (36.0-46.0); Hemoglobin 12.4 g/dL (12.2-16.2); Lymphocytes # (auto) 1.3 10 ^3/uL (0.4-5.4); Lymphocytes % (auto) 18.1 % (10.0-50.0); Mean Corpuscular Hemoglobin 29.4 pg (28.0-32.0); Mean Corpuscular Hgb Conc. 32.5 g/dL (32.0-36.0); Mean Corpuscular Volume 90.4 fL (80.0-100.0); Monocytes # (auto) 0.7 10 ^3/uL (0-1.3); Monocytes % (auto) 9.7 % (0.0-12.0); Neutrophils % (auto) 70.1 % (37.0-80.0); Red Blood Cells 4.21 10^6/uL (4.0-5.20); Red Cell Distribution Width 14.7 % (11.8-14.3); White Blood Cell 7.2 10^3/uL (4.4-10.8)
[2021-01-29 09:58] LABS: Albumin 3.3 g/dL (3.4-5.0); Amylase 24 U/L (25-115); Anion Gap 9 (5-15); Blood Urea Nitrogen 7 mg/dL (7-18); Calcium 8.7 mg/dL (8.5-10.1); Carbon Dioxide 22 mmol/L (21-32); Chloride 109 mmol/L (98-107); Glucose 137 mg/dL (74-106); Lipase 116 U/L (73-393); Magnesium 2.1 mg/dL (1.6-2.6); Potassium 3.7 mmol/L (3.5-5.1); Sodium 140 mmol/L (136-145)
[2021-01-29 10:04] LABS: Alanine Aminotransferase 41 U/L (13-56); Alkaline Phosphatase 56 U/L (45-117); Aspartate Aminotransferase 58 U/L (15-37); BUN/Creatinine Ratio 11.9; Bilirubin, Total 0.4 mg/dL (0.2-1.0); GFR African American 129 mL/min; GFR Non-African American 107 mL/min; Total Protein 6.4 g/dL (6.4-8.2)
[2021-01-29 11:46] LABS: Urine Bacteria NONE SEEN /hpf (None Seen); Urine Blood TRACE /uL (Negative); Urine Mucus FEW (None Seen); Urine Specific Gravity 1.014 (1.001-1.035); Urine Sperm PRESENT /hpf (None Seen); Urine WBC 631 /hpf (0 - 5); Urine WBC Clumps PRESENT /hpf (None Seen)
[2021-01-29 13:08] VITALS: BP 163/76
== END 2021-01-29 13:13 | disposition home or self-care (01) ==
LOC: ER 08:04
DX: K57.30 Diverticulosis of large intestine without perforation or abscess without bleeding (principal); N39.0 Urinary tract infection, site not specified; I10 Essential (primary) hypertension; E11.9 Type 2 diabetes mellitus without complications; E78.5 Hyperlipidemia, unspecified; I25.2 Old myocardial infarction; Z79.899 Other long term (current) drug therapy; Z90.49 Acquired absence of other specified parts of digestive tract; Z90.710 Acquired absence of both cervix and uterus
CPT/HCPCS: 36415; 74176; 80053; 81001; 82150; 83690; 83735; 84484; 85025; 93005

== ENCOUNTER 2021-08-02 08:05 | Emergency (ER) | payer MEDICARE, MEDICAID ==
[~2021-08-02] VITALS: Ht 149.9 cm; Wt 68.0 kg
[2021-08-02 09:14] LABS: Basophils # (auto) 0 10 ^3/uL (0-0.2); Basophils % (auto) 0.3 % (0.0-2.0); Eosinophils # (auto) 0.1 10 ^3/uL (0-0.8); Eosinophils % (auto) 0.8 % (0.0-7.0); Hematocrit 37.4 % (36.0-46.0); Hemoglobin 12.6 g/dL (12.2-16.2); Lymphocytes # (auto) 1.2 10 ^3/uL (0.4-5.4); Lymphocytes % (auto) 18.8 % (10.0-50.0); Mean Corpuscular Hemoglobin 30.9 pg (28.0-32.0); Mean Corpuscular Hgb Conc. 33.7 g/dL (32.0-36.0); Mean Corpuscular Volume 91.7 fL (80.0-100.0); Monocytes # (auto) 0.7 10 ^3/uL (0-1.3); Monocytes % (auto) 10.3 % (0.0-12.0); Neutrophils # (auto) 4.4 10 ^3/uL (1.6-8.6); Neutrophils % (auto) 69.8 % (37.0-80.0); Red Blood Cells 4.08 10^6/uL (4.0-5.20); White Blood Cell 6.3 10^3/uL (4.4-10.8)
[2021-08-02 09:54] LABS: Albumin 3.1 g/dL (3.4-5.0); Calcium 7.6 mg/dL (8.5-10.1)
[2021-08-02 09:57] LABS: BUN/Creatinine Ratio 28.4; Bilirubin, Total 0.4 mg/dL (0.2-1.0); Total Protein 5.9 g/dL (6.4-8.2)
[2021-08-02 11:34] LABS: Urine Bacteria FEW /hpf (None Seen); Urine Blood Negative /uL (Negative); Urine Specific Gravity 1.007 (1.001-1.035); Urine WBC 13 /hpf (0 - 5)
[2021-08-02 13:00] VITALS: BP 142/60
[2021-08-02] MEDS ORDERED: cefTRIAXone 1GM/50ML D5W 50 ML IV ONE (15:00)
[2021-08-02] MEDS ORDERED: LEVO500T31 PO ×2 (15:18→16:13)
== END 2021-08-02 16:18 | disposition home or self-care (01) ==
LOC: ER 08:05
DX: N39.0 Urinary tract infection, site not specified (principal); E11.9 Type 2 diabetes mellitus without complications; E78.5 Hyperlipidemia, unspecified; I10 Essential (primary) hypertension; Z90.49 Acquired absence of other specified parts of digestive tract; Z90.710 Acquired absence of both cervix and uterus
CPT/HCPCS: 36415; 71045; 74176; 80053; 81001; 82962; 83605; 83690; 84484; 85025; 93005; 96365; 99285; J0696

== ENCOUNTER 2021-12-07 17:17 | Emergency (ER) | payer MEDICARE, MEDICAID ==
[~2021-12-07] VITALS: Ht 152.4 cm; Wt 56.3 kg
[~2021-12-07 17:17] MED LIST changes: +LEVO500T31 PO
[2021-12-07 19:01] LABS: Urine WBC None Seen /hpf (0 - 5)
[2021-12-07 19:26] LABS: Urine Bacteria NONE SEEN /hpf (None Seen); Urine Blood Negative /uL (Negative); Urine Specific Gravity 1.011 (1.001-1.035)
[2021-12-07 20:14] LABS: Basophils # (auto) 0 10 ^3/uL (0-0.2); Basophils % (auto) 0.4 % (0.0-2.0); Eosinophils # (auto) 0 10 ^3/uL (0-0.8); Eosinophils % (auto) 0.5 % (0.0-7.0); Hematocrit 40.2 % (36.0-46.0); Hemoglobin 13.1 g/dL (12.2-16.2); Lymphocytes # (auto) 2.4 10 ^3/uL (0.4-5.4); Lymphocytes % (auto) 29.7 % (10.0-50.0); Mean Corpuscular Hemoglobin 29.5 pg (28.0-32.0); Mean Corpuscular Hgb Conc. 32.7 g/dL (32.0-36.0); Mean Corpuscular Volume 90.2 fL (80.0-100.0); Monocytes # (auto) 0.7 10 ^3/uL (0-1.3); Neutrophils % (auto) 61.4 % (37.0-80.0); Red Blood Cells 4.45 10^6/uL (4.0-5.20); Red Cell Distribution Width 14.2 % (11.8-14.3); White Blood Cell 8.2 10^3/uL (4.4-10.8)
[2021-12-07 20:28] LABS: Albumin 3.7 g/dL (3.4-5.0); Calcium 8.8 mg/dL (8.5-10.1); Magnesium 1.8 mg/dL (1.6-2.6); Potassium 4.2 mmol/L (3.5-5.1)
[2021-12-07 20:32] LABS: BUN/Creatinine Ratio 28.8; Bilirubin, Total 0.6 mg/dL (0.2-1.0); Total Protein 6.4 g/dL (6.4-8.2)
[2021-12-08] MEDS ORDERED: PANT40TA2 PO (08:39)
[2021-12-08] MEDS ORDERED: METO-281 PO (08:39)
[2021-12-08 08:46] VITALS: BP 154/61
== END 2021-12-08 09:37 | disposition home or self-care (01) ==
LOC: ER 17:20
DX: K52.9 Noninfective gastroenteritis and colitis, unspecified (principal); E87.1 Hypo-osmolality and hyponatremia; E11.9 Type 2 diabetes mellitus without complications; E78.5 Hyperlipidemia, unspecified; I10 Essential (primary) hypertension; Z90.710 Acquired absence of both cervix and uterus; Z90.49 Acquired absence of other specified parts of digestive tract
CPT/HCPCS: 36415; 74176; 80053; 81001; 82962; 83735; 84484; 85025; 93005